=== PATIENT | male | born 1945 | race Caucasian/White ===

== ENCOUNTER → 2018-08-28 | Outpatient (CLI) | payer OTHER, MEDICARE ==
[2015-03-27 10:00] VITALS: BP 161/82
[~2018-08-28] MED LIST: AMLO10TA8 PO; ASPI-482 PO; ATOR10TA PO; B12/1TAB3 PO; DICY20TA3 PO; DOCU-109 PO; FLUT16SP NS; GLUC100018 PO; HYDR-3164 PO; LISI-334 PO; METO25TA2 PO; METO25TA4 PO; MULT-658 PO; OMEG300C PO; OMEP20TA8 PO; TEST200V3 IM
[2018-08-28 15:02] LABS: BASO % 0 % (0-3); EOS # 0.4 x10^3/uL (0.0-0.7); EOS % 5 % (0-3); HEMATOCRIT 46.4 % (39.0-53.0); HEMOGLOBIN 16.1 g/dL (13.0-17.5); LYMPH # 1.4 x10^3/uL (1.0-4.8); LYMPH % 21 % (24-48); MEAN CORPUSCULAR HEMOGLOBIN 31 pg (25-35); MEAN CORPUSCULAR HGB CONC 35 g/dL (31-37); MEAN CORPUSCULAR VOLUME 88 fL (79-100); MONO # 0.7 x10^3/uL (0.0-1.1); MONO % 10 % (0-9); NEUT # 4.5 x10^3uL (1.8-7.7); NEUT % 64 % (31-73); PLATELET COUNT 191 x10^3/uL (140-400); RED BLOOD COUNT 5.29 x10^6/uL (4.30-5.70); RED CELL DISTRIBUTION WIDTH 13.7 % (11.5-14.5); WHITE BLOOD COUNT 6.9 x10^3/uL (4.0-11.0)
[2018-08-28 15:24] LABS: ALBUMIN 3.9 g/dL (3.4-5.0); ALBUMIN/GLOBULIN RATIO 1.1 (1.0-1.7); CALCIUM 8.7 mg/dL (8.5-10.1); CREATININE 1.1 mg/dL (0.7-1.3); GFR 65.4; POTASSIUM 4.5 mmol/L (3.5-5.1); TOTAL BILIRUBIN 0.5 mg/dL (0.2-1.0); TOTAL PROTEIN 7.3 g/dL (6.4-8.2)
== END | disposition home or self-care (01) ==
LOC: SURGPAT 13:55
PROVIDERS: ATTEND Neurological Surgery
DX: Z01.818 Encounter for other preprocedural examination (principal); M51.26 Other intervertebral disc displacement, lumbar region
CPT/HCPCS: 36415; 80053; 85025; 87641

== ENCOUNTER 2018-09-13 06:59 | Day surgery (SDC) | payer OTHER, MEDICARE ==
--- NOTE | 2018-09-12 15:28 | PREOP HP ---
DATE OF SERVICE: 09/13/2018 HISTORY OF PRESENT ILLNESS: The patient was seen today in the office. He is having difficulty with low back pain and pain which radiates into his right buttock and right posterior lateral thigh and leg. The problem started in 04/2018 when he was hunting and sitting in a deer stand. He says his pain is a 4-5/10. Lying on his right side or sitting markedly increases pain. Heat, ice and stretching help him. He did have some left leg pain, but received epidural steroid injections and the pain resolved. He takes Percocet for pain. He had epidural steroid injections for this problem. He has had epidural steroid injections. PAST MEDICAL HISTORY: Cancer, hypertension, kidney stones. PAST SURGICAL HISTORY: Cholecystectomy in 2007, left meniscus 2015, right rotator cuff 2015, right meniscus 2016, hernia 1962, head injury 1952. FAMILY HISTORY: Bleeding problems, cancer, hypertension. SOCIAL HISTORY: Retired. . He does not smoke. Drinks alcohol 1-2 times per week. ALLERGIES: PENICILLIN. CURRENT MEDICATIONS: Percocet, metoprolol, amlodipine, atorvastatin, omeprazole, testosterone, lactobacillus, Sanjay aspirin, Centrum fish oil, vitamin C, glucosamine, vitamin B12, and vitamin D3. REVIEW OF SYSTEMS: A 12-point review of systems was obtained and is noncontributory except for that mentioned above. PHYSICAL EXAMINATION: NEUROSURGERY EXAMINATION: GENERAL APPEARANCE: Alert, pleasant, no acute distress. HEAD: Normocephalic and atraumatic. SKIN: Warm and dry. MUSCULOSKELETAL: Paraspinal muscle bulk is normal, restricted range of motion of the lumbar spine, [id number] tenderness of lower lumbar spine with palpation, normal range of motion of the lower extremities bilaterally. EXTREMITIES: No clubbing, cyanosis, or edema. NEUROLOGIC: Alert and oriented x 3, normal recent and remote memory. Strength 5/5 in bilateral lower extremities, sensory is intact to light touch in bilateral lower extremities. Reflexes are present and symmetric in lower extremities bilaterally, positive straight leg raise on the right. Negative straight leg raise on the left, normal gait. IMAGING: I reviewed a lumbar MRI scan. On that study, there is disc bulging, ligamentum hypertrophy with lateral recess and foraminal narrowing at L4-L5. ASSESSMENT: Intervertebral disc disorders with radiculopathy, lumbar region. PLAN: I believe the symptoms relate to the problems at L4-5. He will likely need hemilaminotomy and microdiscectomy at L4-L5 on the right. We discussed this in detail. He would like to proceed. We will make the arrangements. FANY BHARDWAJ MD DR: BRANDON/mary JOB#: [id number] / [id number] HEATHER
[~2018-09-13] VITALS: Ht 172.7 cm; Wt 95.3 kg
[~2018-09-13 06:59] MED LIST changes: +BACITRACIN 50,000 UNIT in IV NORMAL SALINE 1000ML BAG 1,000 ML IRR ONE; +BUPIVAC MPF-EPI 0.5%-1:200000 30 ML VIAL. ONE; -DOCU-109 PO; +GELATIN SPONGE SIZE 100. ONE; -HYDR-3164 PO; +KETOROLAC 60 MG/2 ML INJ FOR OR. ONE; +THROMBIN TOPICAL 20,000 UNIT SPRAY.SYRN KIT TP ONE; +VANCOMYCIN 1GM IVPB FOR OMNI 250 ML IV PRN
--- NOTE | 2018-09-13 07:33 | EKG ---
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
[2018-09-13] MEDS ORDERED: IV RINGERS,LACTATED 1000ML 1,000 ML IV SCH ×2 (07:45→12:08)
[2018-09-13] MEDS ORDERED: PROPOFOL 20 ML IV ONE (08:06)
[2018-09-13] MEDS ORDERED: PROPOFOL 50 ML IV ONE ×2 (08:06→10:06)
[2018-09-13] MEDS ORDERED: DEXAMETHASONE SOD PHOS 20 MG/5 ML VIAL. ONE (08:06)
[2018-09-13] MEDS ORDERED: ROCURONIUM 50 MG/5 ML VIAL. ONE (08:06)
[2018-09-13] MEDS ORDERED: REMIFENTANIL 2 MG VIAL. IV ONE (08:06)
[2018-09-13] MEDS ORDERED: ONDANSETRON PF 4 MG/2 ML VIAL. ONE (08:06)
[2018-09-13] MEDS ORDERED: PHENYLEPHRINE 10 MG/ML VIAL. ONE (08:06)
[2018-09-13] MEDS ORDERED: LIDOCAINE 2% PF 5 ML VIAL. ONE (08:06)
[2018-09-13] MEDS ORDERED: 0.9 % SODIUM CHLORIDE 20 ML VIAL. IJ ONE ×2 (08:14)
[2018-09-13] MEDS ORDERED: GLYCOPYRROLATE 1 MG/5 ML VIAL. ONE (09:27)
[2018-09-13] MEDS ORDERED: ePHEDrine PF IN SALINE 50 MG/10 ML SYRINGE. IV ONE (09:30)
[2018-09-13] MEDS ORDERED: DESFLURANE > 120 MINUTES IH ONE (09:59)
--- NOTE | 2018-09-13 11:49 | DISCH ---
DISCHARGE INSTRUCTIONS Condition on Discharge Condition on Discharge: Stable Activity After Discharge Activity Instructions for Disc: Activity as tolerated, Avoid exertion Bathing Instructions: Shower-keep dressing dry Lifting Instructions after Dis: No heavy lifting, No pulling or pushing, Do not lift >10 pounds Weight Bearing Status after Di: No restrictions Diet after Discharge Diet after Discharge: Regular Additional Diet Restrictions: resume home diet Diet Texture: Regular Swallowing Supervision: None needed Wound Incision Care Wound/Incision Care: Ice to area for comfort Other wound/incision instructi: may remove dressing in 48 hrs if dry then may shower, no soaking Contacting the DREverardo after DC Call your doctor for: Concerns you may have Follow-Up Follow up with: Dr. Bhardwaj's nurse in 2 weeks [phone] Treatment/Equipment after DC Adaptive Equipment Issued: None FANY BHARDWAJ MD Sep 13, 2018 11:49
[2018-09-13] MEDS ORDERED: HYDR-3164 PO (11:54)
[2018-09-13] MEDS ORDERED: DOCU-109 PO (11:54)
[2018-09-13] MEDS ORDERED: fentaNYL PF VIAL 100 MCG/2 ML VIAL ONE (12:07)
[2018-09-13] MEDS: fentaNYL PF VIAL 100 MCG/2 ML VIAL IV PRN ×4 (12:09→12:51)
[2018-09-13] MEDS ORDERED: MORPHINE SULFATE 2 MG/ML VIAL. IV PRN (12:15)
[2018-09-13] MEDS ORDERED: ONDANSETRON PF 4 MG/2 ML VIAL. IV PRN (12:15)
[2018-09-13] MEDS ORDERED: fentaNYL PF VIAL 100 MCG/2 ML VIAL IV PRN (12:15)
[2018-09-13] MEDS ORDERED: PROCHLORPERAZINE 10 MG/2 ML VIAL. IV PRN (12:15)
[2018-09-13] MEDS ORDERED: LIDOCAINE 1% PF 2 ML VIAL. ID PRN (12:15)
[2018-09-13] MEDS ORDERED: HYDROmorphone 2 MG/ML VIAL IV PRN (12:15)
[2018-09-13] MEDS ORDERED: HYDROcodone/APAP 5/325MG 1 TAB TABLET PO ONE ×2 (12:45)
[2018-09-13 13:30] VITALS: BP 147/73
--- NOTE | 2018-09-14 17:10 | PATHOLOGY ---
[facility] Accession Number: [id number] . 01 Material submitted: . LUMBAR DISC AND DECOMPRESSION . 01 Clinical history: . Lumbar herniated disc . 02 Diagnosis: Segments of fibrocartilaginous, adipose, and skeletal muscle tissue and bone, lumbar disc and decompression: - Degenerative changes of fibrocartilaginous tissue. LBQ/09/14/2018 . 02 Comment: There is no evidence of an acute inflammatory process or malignancy. (JPM/db; 09/14/2018) . 02 Electronically signed: . Gagan Guillory MD, Pathologist NPI- [id number] . 01 Gross description: . The specimen is received in formalin, labeled "Mg [place], lumbar disc and decompression" and consists of multiple fragments of pink-quispe tissue admixed with bone measuring 4.0 x 3.3 x 0.6 cm in aggregate. A sales representative printing supplies portion is submitted in A1 following decalcification. (SDY; 09/13/2018) SYU/SYU . 02 Pathologist provided ICD-10: M51.36 . 02 CPT . 862689, 803099 Specimen Comment: A courtesy copy of this report has been sent to Specimen Comment: [phone], . Specimen Comment: Report sent to / DR LANDIS Specimen Comment: A duplicate report has been generated due to demographic updates. Performed at: 01 [facility] [address], [place] [id number] MD Tima Barroso MD Phone: [phone] Performed at: [address] [facility] [address] [place], [place] [id number] MD Gagan Guillory MD Phone: [phone]
--- NOTE | 2018-09-17 18:24 | OP ---
DATE OF SURGERY: 09/13/2018 PREOPERATIVE DIAGNOSES: Herniated lumbar disc, L4-L5, right with inferior fragment and right lumbar radiculopathy. POSTOPERATIVE DIAGNOSES: Herniated lumbar disc, L4-L5, right with inferior fragment and right lumbar radiculopathy. OPERATION PERFORMED: Hemilaminotomy and microdiscectomy at L4-L5, right. The operation was done with EMG monitoring, SSEP monitoring, fluoroscopy, microscopic dissection. SURGEON: Quintin Bhardwaj M.D. COMMUNITY SUPPORT PROFESSIONAL: Rona ACOSTA assisted. She assisted with the microdecompression as well as the closure. OPERATIVE INDICATIONS: The patient is a very pleasant 73-year-old man who developed intractable back and right leg pain, which failed conservative measures. On imaging studies, there was a disc herniation at L4-L5 along with an inferior fragment seen on a newer study and I recommended lumbar microsurgery to remove the disc fragment and decompress the dura and exiting root as well as perform a microdiscectomy. He understood the surgery, the risks, the technique and he wished to go ahead. DESCRIPTION OF PROCEDURE: Following general endotracheal anesthesia, the patient was positioned prone on the Shahriar table. Lumbar region prepped and draped in standard fashion. MARCE hose and AV impulse boots were applied for DVT prophylaxis. A microscope was draped. Fluoroscopy was draped and brought in the field. Monitoring was established. Vancomycin 1 gram was given prior to the surgery. Using fluoroscopic guidance, incision was made at the L4-L5 interspace. I dissected down through skin and subcutaneous tissue, reflected the paraspinal muscles and placed a Buckland micro disc retractor. I brought in the high speed air drill. I burred down a generous hemilaminotomy and carried this inferior performing a generous partial foraminotomy. I trimmed away thickened ligamentum flavum and exposed the dura and the exiting L5 root. The root was lifted up by disc fragment and I gently worked to free up the root from the underlying disc, but this was somewhat difficult because of considerable scarring. The portion of the disc was densely scarred to the undersurface of the root. I did work and was able to create a plane and then gradually began to remove disc in a piecemeal fashion. Much of the disc at the level of the disc space was scarred, but I was able to gently work and remove the majority of this material and then I worked inferiorly and removed some soft disc, which had herniated inferiorly along the course of the root and pulled this superiorly and out. These maneuvers markedly decrease the amount of pressure on the root and then root was quite free. I did enter the disc space and performed discectomy with pituitary rongeurs. As I worked, the entire region became very well decompressed. I irrigated copiously. I did use small amounts of bone wax as well as a bipolar cautery for any bone bleeding or epidural bleeding. Hemostasis was never a significant problem. I then after irrigation and removed the retractor, obtained hemostasis in the muscle and I closed the wound in layers with absorbable sutures. The skin was closed with a 4-0 subcuticular stitch. The operation went very well and the patient taken uneventfully to recovery room. I was quite pleased with the surgery. QUINTIN BHARDWAJ MD DR: BRANDON/mary JOB#: [id number] / [id number] HEATHER
== END 2018-09-13 13:15 | disposition home or self-care (01) ==
LOC: SURG 06:59
PROVIDERS: ATTEND Neurological Surgery
DX: M51.16 Intervertebral disc disorders with radiculopathy, lumbar region (principal); I10 Essential (primary) hypertension; Z88.0 Allergy status to penicillin; Z88.8 Allergy status to other drugs, medicaments and biological substances; Z87.442 Personal history of urinary calculi; Z90.49 Acquired absence of other specified parts of digestive tract; Z98.890 Other specified postprocedural states; Z82.49 Family history of ischemic heart disease and other diseases of the circulatory system; Z72.89 Other problems related to lifestyle; Z79.82 Long term (current) use of aspirin; Z79.899 Other long term (current) drug therapy
CPT/HCPCS: 63030; 88304; 88311; 93005; 97161; A7015; J0171; J1100; J1885; J2001; J2270; J2405; J2704; J3010; J3370; J3490; J7030; J7120; 76000